=== PATIENT | female | born 1985 | race Caucasian/White ===

== ENCOUNTER 2021-06-27 13:48 | Emergency (ER) | payer MEDICAID ==
[2021-06-27] MEDS ORDERED: methylPREDNISolone Sodium Succinate 125 MG/2 ML SDV IVPUSH ONE (15:15)
[2021-06-27] MEDS ORDERED: Ondansetron 4 MG/2 ML SDV IVPUSH ONE (15:15)
[2021-06-27] MEDS ORDERED: Sodium Chloride 0.9% 1,000 ML IV ONE (15:15)
[2021-06-27] MEDS ORDERED: Ketorolac 15 MG/ML SDV IVPUSH STA (15:15)
--- NOTE | 2021-06-27 15:19 | EDM.PDOC ---
ED HPI GENERAL MEDICAL PROBLEM - General Chief Complaint: Respiratory Problem Stated Complaint: COVID POSITIVE,SOB,CHILLS Time Seen by Provider: 06/27/21 14:51 Source of Information: Reports: Patient History Limitations: Reports: No Limitations - History of Present Illness INITIAL COMMENTS - FREE TEXT/NARRATIVE: 35-year-old female past medical history Covid diagnosed 06/17/2021 presents with continued Covid symptoms. Patient notes cough, body aches, shortness of breath, nausea. She went to the walk-in clinic requesting steroids and antibiotics and was told to come to the emergency department for further assessment. - Related Data Allergies Allergy/AdvReac Type Severity Reaction Status Date / Time No Known Allergies Allergy Verified 06/27/21 15:09 Home Meds: Home Meds Buprenorphine HCl/Naloxone HCl [Suboxone 12 mg-3 mg Sl Film] 1 dose PO ASDIRECTED 06/27/21 [History] Past Medical History HEENT History: Reports: None Cardiovascular History: Reports: None Respiratory History: Reports: None Gastrointestinal History: Reports: None Genitourinary History: Reports: None ST[employer]ANDER History: Reports: Musculoskeletal History: Reports: None Neurological History: Reports: None Psychiatric History: Reports: None Endocrine/Metabolic History: Reports: None Hematologic History: Reports: None Immunologic History: Reports: None Oncologic (Cancer) History: Reports: None Dermatologic History: Reports: None - Infectious Disease History Infectious Disease History: Reports: Novel Coronavirus - Past Surgical History Head Surgeries/Procedures: Reports: None HEENT Surgical History: Reports: Adenoidectomy, Oral Surgery, Tonsillectomy Female Surgical History: Reports: Hysterectomy Social & Family History - Family History Family Medical History: No Pertinent Family History - Tobacco Use Tobacco Use Status *Q: Never Tobacco User Second Hand Smoke Exposure: No - Caffeine Use Caffeine Use: Reports: Energy Drinks - Recreational Drug Use Recreational Drug Use: No ED ROS GENERAL - Review of Systems Review Of Systems: Comprehensive ROS is negative, except as noted in HPI. ED EXAM, GENERAL - Physical Exam Exam: See Below Exam Limited By: No Limitations General Appearance: Alert, WD/WN, No Apparent Distress Ears: Hearing Grossly Normal Throat/Mouth: Normal Voice, No Airway Compromise Head: Atraumatic, Normocephalic Respiratory/Chest: No Respiratory Distress, Lungs Clear, Normal Breath Sounds, No Accessory Muscle Use Cardiovascular: Normal Peripheral Pulses, Regular Rate, Rhythm Extremities: Normal Inspection Neurological: Alert Psychiatric: Normal Affect, Normal Mood Skin Exam: Warm, Dry, Intact, Normal Color Course - Vital Signs Last Recorded V/S: Last Vital Signs Temp 97.6 F 06/27/21 15:10 Pulse 68 06/27/21 15:10 Resp 17 06/27/21 15:10 BP 114/65 06/27/21 15:10 Pulse Ox 99 06/27/21 15:10 - Orders/Labs/Meds Orders: Active Orders 24 hr Category Date Time Status Sodium Chloride 0.9% [Normal Saline] 1,000 ml Med 06/27/21 15:15 Active IV .Bolus Saline Lock Insert [OM.PC] Stat Oth 06/27/21 15:15 Ordered Medication Orders Sodium Chloride (Normal Saline) 1,000 mls @ 999 mls/hr IV .Bolus ONE Stop: 06/27/21 16:15 Last Admin: 06/27/21 15:40 Dose: 999 mls/hr Documented by: RAMIN Meds: Medications Generic Name Dose Route Start Last Admin Trade Name Freq PRN Reason Stop Dose Admin Sodium Chloride 1,000 mls @ 999 mls/hr 06/27/21 15:15 06/27/21 15:40 Normal Saline IV 06/27/21 16:15 999 mls/hr .Bolus ONE Administration Discontinued Medications Generic Name Dose Route Start Last Admin Trade Name Freq PRN Reason Stop Dose Admin Ketorolac Tromethamine 15 mg 06/27/21 15:15 06/27/21 15:40 Ketorolac 15 Mg/Ml Sdv IVPUSH 06/27/21 15:16 15 mg STAT STA Administration Methylprednisolone Sodium Succinate 125 mg 06/27/21 15:15 06/27/21 15:40 Methylprednisolone Sodium Succinate 125 Mg/2 Ml Sdv IVPUSH 06/27/21 15:16 125 mg ONETIME ONE Administration Ondansetron HCl 4 mg 06/27/21 15:15 06/27/21 15:40 Ondansetron 4 Mg/2 Ml Sdv IVPUSH 06/27/21 15:16 4 mg ONETIME ONE Administration - Re-Assessments/Exams Free Text/Narrative Re-Assessment/Exam: 06/27/21 15:19 We will give IV fluid bolus, Zofran, Toradol, Solu-Medrol per patient request. Will get chest x-ray to rule out superimposed bacterial pneumonia. Anticipate discharge home with symptomatic relief medications. 06/27/21 16:01 Patient has possible developing infiltrates in lung bases. Will discharge with prednisone and azithromycin for potential developing bacterial pneumonia. Departure - Departure Time of Disposition: 16:02 Disposition: Home, Self-Care 01 Condition: Good Clinical Impression: Pneumonia Qualifiers: Pneumonia type: due to unspecified organism Laterality: bilateral Lung lo cation: lower lobe of lung Qualified Code(s): J18.9 - Pneumonia, unspecified organism - Discharge Information Instructions: Community-Acquired Pneumonia, Adult Referrals: Beatriz Cruz NP [Primary Care Provider] - Forms: ED Department Discharge Additional Instructions: Your chest x-ray does show developing pneumonia in bilateral lower lobes of your lungs. This could represent complication from Covid, however, this is difficult to distinguish from a new bacterial pneumonia as this can also happen as a complication from Covid. In the setting we typically treat with antibiotics. I have also prescribed you a 5-day course of prednisone which is a steroid that can help open up your lungs. You can continue to take Tylenol or Motrin to help with fevers. The following information is given to patients seen in the emergency department who are being discharged to home. This information is to outline your options for follow-up care. We provide all patients seen in our emergency department with a follow-up referral. The need for follow-up, as well as the timing and circumstances, are variable depending upon the specifics of your emergency department visit. If you don't have a primary care physician on staff, we will provide you with a referral. We always advise you to contact your personal physician following an emergency department visit to inform them of the circumstance of the visit and for follow-up with them and/or the need for any referrals to a consulting specialist. The emergency department will also refer you to a specialist when appropriate. This referral assures that you have the opportunity for follow-up care with a specialist. All of these measure are taken in an effort to provide you with optimal care, which includes your follow-up. Under all circumstances we always encourage you to contact your private physician who remains a resource for coordinating your care. When calling for follow-up care, please make the office aware that this follow-up is from your recent emergency room visit. If for any reason you are refused follow-up, please contact the [facility] Emergency Department at and asked to speak to the emergency department charge nurse. Please follow up with your primary care physician. If you do not have a primary care physician, see below: [facility] [address] [place] [id number] [facility] [address] [place], [place] [phone] [facility] [address], [place] [address] Sepsis Event Note (ED) - Evaluation Sepsis Screening Result: No Definite Risk - Focused Exam Vital Signs: Vital Signs Temp Pulse Resp BP Pulse Ox 06/27/21 15:10 97.6 F 68 17 114/65 99 - My Orders Last 24 Hours: My Active Orders 06/27/21 15:15 Sodium Chloride 0.9% [Normal Saline] 1,000 ml IV .Bolus Saline Lock Insert [OM.PC] Stat - Assessment/Plan Last 24 Hours: My Active Orders 06/27/21 15:15 Sodium Chloride 0.9% [Normal Saline] 1,000 ml IV .Bolus Saline Lock Insert [OM.PC] Stat
--- NOTE | 2021-06-27 15:52 | CR ---
Indication: Kauffman by risks for 2 weeks Comparison: None available. Technique: Single AP view chest Findings: There is hyperinflation and chronic interstitial change. There is minimal ground-glass opacification of the left greater than right lung bases likely representing developing infiltrate. The cardiomediastinal silhouette is within normal limits. The bony thorax is grossly intact. Impression: Developing airspace and ground-glass opacities in the bilateral lung bases likely representing developing infiltrates. Dictated by Breezy Whyte MD @ 06/27/2021 3:50:15 PM (Electronically Signed)
== END 2021-06-27 16:26 | disposition home or self-care (01) ==
LOC: MW.ED 13:48
DX: J18.9 Pneumonia, unspecified organism (principal)
CPT/HCPCS: 71045; 96374; 96375; 99284; J1885; J2405; J2930; J7030

== ENCOUNTER 2022-10-27 16:01 | Observation (INO) | payer MEDICAID ==
[2022-10-27] MEDS ORDERED: Ketorolac 30 MG/ML SDV IVPUSH ONE (17:13)
[2022-10-27] MEDS ORDERED: Sodium Chloride 0.9% 1,000 ML IV ONE ×2 (17:13→23:11)
[2022-10-27] MEDS ORDERED: cefTRIAXone 1 GM in Sodium Chloride 0.9% 50 ML IV ONE (17:40)
[2022-10-27 17:43] LABS: CARBON DIOXIDE,CO2 29.7 mmol/L (21.0-32.0); CORONAVIRUS COVID-19 NAA NEGATIVE (NEGATIVE); INFLUENZA A NAA NEGATIVE (NEGATIVE); INFLUENZA B NAA NEGATIVE (NEGATIVE); POTASSIUM,K 3.5 mmol/L (3.5-5.1); RESPIRATORY SYNCYTIAL VIR NAA NEGATIVE (NEGATIVE)
[2022-10-27] MEDS ORDERED: Azithromycin 500 MG in Sodium Chloride 0.9% 250 ML IV ONE (18:38)
[2022-10-27] MEDS ORDERED: Ondansetron 4 MG/2 ML SDV IVPUSH ONE (20:07)
[2022-10-27] MEDS: Sodium Chloride 0.9% 1,000 ML IV ONE (20:13)
[2022-10-27] MEDS ORDERED: Acetaminophen 325 MG Tab PO ONE (20:16)
[2022-10-27] MEDS ORDERED: Acetaminophen 325 MG Tab ONE (20:17)
[2022-10-28] MEDS: Sodium Chloride 0.9% 1,000 ML IV ONE (00:44)
[2022-10-28] MEDS ORDERED: Acetaminophen 325 MG Tab PO PRN (01:04)
[2022-10-28] MEDS ORDERED: guaiFENesin/Dextromethorphan 100-10 MG/5 ML Soln 10 ML Cup PO PRN (01:04)
[2022-10-28 05:45] LABS: CARBON DIOXIDE,CO2 26.7 mmol/L (21.0-32.0); POTASSIUM,K 3.3 mmol/L (3.5-5.1)
[2022-10-28] MEDS ORDERED: Potassium Chloride 20 MEQ Tab.ER PO ONE (07:59)
[2022-10-28] MEDS ORDERED: cefTRIAXone 1 GM in Sodium Chloride 0.9% 50 ML IV SCH (18:00)
[2022-10-28] MEDS ORDERED: Azithromycin 500 MG in Sodium Chloride 0.9% 250 ML IV SCH (18:00)
== END 2022-10-28 13:50 | disposition home or self-care (01) ==
LOC: MW.ED 16:01 → MW.MS 18:44
PROVIDERS: ADMIT Internal Medicine; ATTEND Internal Medicine
DX: J18.9 Pneumonia, unspecified organism (principal); N30.01 Acute cystitis with hematuria; R91.8 Other nonspecific abnormal finding of lung field; Z86.16 Personal history of COVID-19; Z98.890 Other specified postprocedural states; Z20.822 Contact with and (suspected) exposure to COVID-19
CPT/HCPCS: 0241U; 36415; 71045; 80048; 80053; 81001; 83605; 83735; 85025; 86308; 87040; 87086; 96365; 96367; 96375; 99284; A9270; J0456; J0696; J1885; J2405; J7030; J7050; 96361; G0378

== ENCOUNTER 2023-12-21 14:04 | Emergency (ER) | payer MEDICAID ==
[2023-12-21 14:35] LABS: BASOPHILS ABSOLUTE AUTO 0.01 K/uL (0.00-0.20); BASOPHILS PERCENT AUTO 0.1 % (0.0-1.0); HEMATOCRIT 37.6 % (37.0-47.0); HEMOGLOBIN 12.9 g/dL (12.0-16.0); IMMATURE GRAN ABSOLUTE AUTO 0.04 K/uL (0.00-0.05); IMMATURE GRAN PERCENT AUTO 0.3 % (0.0-0.4); LYMPHOCYTES ABSOLUTE AUTO 0.82 K/uL (1.00-4.80); MEAN CORPUSCULAR HEMOGLOBIN 29.9 pg (28.0-32.0); MEAN CORPUSCULAR HGB CONC 34.3 g/dL (32.0-36.0); MEAN CORPUSCULAR VOLUME 87.2 fL (83.0-99.0); MEAN PLATELET VOLUME 9.7 fL (9.4-12.3); MONOCYTES ABSOLUTE AUTO 0.28 K/uL (0.00-0.80); MONOCYTES PERCENT AUTO 2.4 % (0.0-8.0); NEUTROPHILS ABSOLUTE AUTO 10.62 K/uL (1.80-7.70); NEUTROPHILS PERCENT AUTO 90.2 % (41.0-71.0); PLATELET COUNT,PLT 181 K/uL (150-400); RED BLOOD CELL COUNT 4.31 M/uL (4.10-5.30); WHITE BLOOD CELL COUNT,WBC 11.77 K/uL (3.9-11.3)
[2023-12-21] MEDS: Sodium Chloride 0.9% 1,000 ML IV ONE (14:39)
[2023-12-21] MEDS: Ondansetron 4 MG/2 ML SDV IVPUSH ONE (14:39)
[2023-12-21] MEDS: Ketorolac 30 MG/ML SDV IVPUSH ONE (14:39)
[2023-12-21 14:55] LABS: APPEARANCE,URINE CLOUDY; COLOR,URINE BROWN; GLUCOSE,URINE NEGATIVE (NEGATIVE); KETONES,URINE 15 mg/dL (NEGATIVE); LEUKOCYTE ESTERASE,URINE TRACE (NEGATIVE); NITRITE,URINE POSITIVE (NEGATIVE); OCCULT BLOOD,URINE LARGE (NEGATIVE); PROTEIN,URINE 100 mg/dL (NEGATIVE)
[2023-12-21 15:00] LABS: BILIRUBIN,URINE SMALL (NEGATIVE)
[2023-12-21 15:09] LABS: EPITHELIAL CELLS,URINE FEW (NONE-FEW); RBC,URINE TOO NUMEROUS TO CT (0-2/HPF)
[2023-12-21 15:10] LABS: BACTERIA,URINE 1+ (NEGATIVE)
[2023-12-21] MEDS: cefTRIAXone 1 GM in Sodium Chloride 0.9% 50 ML IV ONE (15:25)
[2023-12-21 15:27] LABS: A/G RATIO 1.2 (0.9-1.6); ALBUMIN 4.1 g/dL (3.4-5.0); BILIRUBIN TOTAL 0.4 mg/dL (0.2-1.0); CALCIUM 9.3 mg/dL (8.5-10.1); CARBON DIOXIDE,CO2 29.3 mmol/L (21.0-32.0); EST CRCL DRUG DOSING (CG) 75.63 mL/min; PROTEIN TOTAL,TP 7.5 g/dL (6.4-8.2)
[2023-12-21] MEDS: Iopamidol 755 MG/ML 500 ML Multipack Bottle IVPUSH STA (16:23)
[2023-12-21] MEDS: Tamsulosin 0.4 MG Cap.ER PO ONE (17:16)
== END 2023-12-21 17:31 | disposition home or self-care (01) ==
LOC: MW.ED 14:04
DX: N13.2 Hydronephrosis with renal and ureteral calculous obstruction (principal); Z79.899 Other long term (current) drug therapy; Z75.8 Other problems related to medical facilities and other health care
CPT/HCPCS: 36415; 74177; 80053; 81001; 81003; 81025; 83690; 85025; 87086; 96361; 96365; 96375; 99284; A9270; J0696; J1885; J2405; J3490; J7030; Q9967